=== PATIENT | female | born 1990 | race Caucasian/White ===

== ENCOUNTER 2018-04-14 11:47 | Day surgery (SDC) | payer OTHER ==
[2018-04-13 08:19] VITALS: BMI 16.9
--- NOTE | 2018-04-14 12:50 | HP ---
SHORT STAY HISTORY AND PHYSICAL HISTORY OF PRESENT ILLNESS: This is a 27-year-old female referred to me because of abdominal pain, anorexia and weight loss. The patient has a history of diarrhea. The patient has had these symptoms over the last 5 months. Her weight was around 100 plus pounds, now the weight is down to 90 pounds. The patient has no fever and no chills. The patient comes in for an EGD and colonoscopy because of abdominal pain, nausea, diarrhea, and weight loss. ALLERGIES: NONE. SOCIAL HISTORY: The patient does not smoke, does not drink alcohol, PAST MEDICAL HISTORY: None. PAST SURGICAL HISTORY: None. Menstrually, periods are regular. LMP 03/13/2018. PHYSICAL EXAMINATION: GENERAL: Fragile looking, thin, young female who appears uncomfortable. VITAL SIGNS: Pulse is 70 and blood pressure 100/70. HEENT: Conjunctivae clear. CARDIAC: First and second heart sounds heard. LUNGS: Clear to auscultation. ABDOMEN: Soft. She is tender over the _ epigastric area. There is no rebound or guarding. She is also has mildly tender across the abdomen. EXTREMITIES: Reveal no edema. ADMITTING DIAGNOSES: A 27-year-old with abdominal pain, nausea, diarrhea, and weight loss. PLAN: EGD and colonoscopy. Job ID: [id number] [facility]
[2018-04-14] MEDS ORDERED: PROPOFOL 200 MG/20 ML VIAL ONE (16:44)
[2018-04-14] MEDS ORDERED: ePHEDrine/0.9% NaCl/PF SYRINGE 50 mg/10 ml ONE (16:44)
--- NOTE | 2018-04-16 06:56 | OP ---
DATE OF PROCEDURE: 04/14/2018 OPERATIVE PROCEDURE: Colonoscopy. PREOPERATIVE DIAGNOSES: Abdominal pain and weight loss. POSTOPERATIVE DIAGNOSIS: Normal colonoscopy. DESCRIPTION OF PROCEDURE: The patient was placed in left lateral position and was given sedation by Anesthesia Department. A rectal exam was done and the scope was advanced into the rectum. No lesion was felt on rectal exam. A Pentax video colonoscope was introduced into the rectum and advanced all the way to the cecum. The patient had a tortuous colon. The mucosa appeared normal throughout the colon with normal vascular pattern. The appendiceal orifice, ileocecal valve, cecum; no pathology seen. The colonoscope was taken to the ascending colon, hepatic flexure, transverse colon. No pathology seen. The splenic flexure, descending colon, sigmoid colon, rectum, no pathology seen. Job ID: [id number]
--- NOTE | 2018-04-16 07:43 | OP ---
DATE OF PROCEDURE: 04/14/2018 OPERATIVE PROCEDURE: Esophagogastroduodenoscopy with biopsy. PREOPERATIVE DIAGNOSES: Abdominal pain and weight loss. POSTOPERATIVE DIAGNOSES: 1. Mild mucosal hyperemia of the distal esophagus, nonspecific. 2. Mild antral gastritis and gastric mucosal hyperemia. 3. Normal duodenum. DESCRIPTION OF PROCEDURE: The patient was placed in the left lateral position and was given sedation by Anesthesia Department. A Pentax video gastroscope, under direct vision, was passed down the oropharynx past the GE junction into the stomach, and subsequently into the descending duodenum. There was mild mucosal hyperemia noted in the distal esophagus just above the GE junction, which was actually normal. The fundus, cardia, gastric body, and gastric antrum: No pathology was seen except for mild mucosal hyperemia over the gastric antrum and gastric body. The duodenal bulb and descending duodenum: No pathology seen in the duodenal bulb. The stomach was decompressed and the scope removed. DISCHARGE PLAN: This is a 27-year-old female referred to me because of abdominal pain, weight loss. She underwent both EGD and biopsy, both were negative. DISCHARGE RECOMMENDATIONS: 1. The patient is advised to call me if she develops abdominal pain, hematochezia. 2. In the absence of any other symptoms, she will come back to me in 2 weeks. Job ID: [id number] [facility]
== END 2018-04-14 15:21 | disposition home or self-care (01) ==
LOC: SDC 11:47
PROVIDERS: ATTEND Internal Medicine Gastroenterology
PROC: 0DB58ZX Excision of Esophagus, Via Natural or Artificial Opening Endoscopic, Diagnostic (ICD-10-PCS; principal; 2018-04-14)
PROC: 0DB88ZX Excision of Small Intestine, Via Natural or Artificial Opening Endoscopic, Diagnostic (ICD-10-PCS; principal; 2018-04-14)
PROC: 0DJD8ZZ Inspection of Lower Intestinal Tract, Via Natural or Artificial Opening Endoscopic (ICD-10-PCS; principal; 2018-04-14)
DX: K29.50 Unspecified chronic gastritis without bleeding (principal); R19.7 Diarrhea, unspecified; R63.4 Abnormal weight loss; Z68.1 Body mass index [BMI] 19.9 or less, adult
CPT/HCPCS: 88305; 88312; J2704

== ENCOUNTER 2018-07-22 12:37 | Emergency (ER) | payer OTHER ==
[~2018-07-22 12:37] MED LIST: ISOVUE-370 76%-LOCM 1 ML ONE
[2018-07-22 13:52] LABS: #Eosinphils 0.1 thou/uL (0.0-0.7); #Monocytes 0.2 thou/uL (0.11-0.59); #Neutrophils 4.4 thou/uL (1.40-6.50); %Basophils 0.4 % (0.0-1.0); %Eosinophils 1.2 % (0.0-10.0); %Monocytes 3.9 % (0.0-10.0); %Neutrophils 77.4 % (42.0-75.0); Hemoglobin 14.7 g/dL (12.0-16.0); Mean Corpuscular HGB CONC 33.6 g/dL (32.0-36.0); Mean Corpuscular Hemoglobin 29.5 pg (27.0-31.0); Mean Corpuscular Volume 87.9 fL (78.0-98.0); Mean Platelet Volume 7.6 fL (7.4-10.4); Platelet Count 204 thou/uL (130-400); RBC Distribution Width 11.5 % (11.5-14.5); Red Blood Cell (RBC) Count 4.97 mill/uL (4.20-5.40); White Blood Cell (WBC) Count 5.7 thou/uL (4.8-10.8)
[2018-07-22 14:12] LABS: ALT (SGPT) 16 U/L (8-55); AST (SGOT) 19 U/L (5-34); Albumin 4.9 g/dL (3.5-5.0); Alkaline Phosphatase 59 U/L (40-150); Anion Gap 13 mmol/L (10-20); BUN (Urea Nitrogen) 12 mg/dL (7.0-18.7); Bilirubin, Total 0.6 mg/dL (0.2-1.2); Calc. Creatinine Clearance 0 mL/min (70-130); Calcium 10.3 mg/dL (7.8-10.44); Carbon Dioxide 26 mmol/L (22-29); Chloride 103 mmol/L (98-107); Estimated GFR-MDRD 87; Globulin 2.7 g/dL (2.4-3.5); Glucose 79 mg/dL (70-105); Lipase 17 U/L (8-78); Protein, Total 7.6 g/dL (6.0-8.3); Sodium 138 mmol/L (136-145)
[2018-07-22 14:13] LABS: BHCG - Serum Negative (NEGATIVE); Pregs Control Background? CLEAR/WHITE (CLR/WHITE); Pregs Control Bar Appear? YES (CONTROL BAR)
--- NOTE | 2018-07-22 15:08 | CT ---
CT OF THE ABDOMEN AND PELVIS WITH CONTRAST: Date: 07/22/18 COMPARISON: None. HISTORY: Left lower quadrant abdominal pain when eating. Intermittent diarrhea and constipation. TECHNIQUE: Multiple contiguous axial images were obtained in a CT of the abdomen and pelvis with contrast. Coron al reformats were performed. FINDINGS: There is a large amount of stool retention throughout the colon. The small bowel is normal in caliber without significant distention. No free air, free fluid, or stranding changes are seen in the abdome n or pelvis. The liver, gallbladder, kidneys, adrenal glands, spleen, and pancreas are unremarkable. A small amoun t of free fluid in the pelvis is likely physiologic. The reproductive organs are unremarkable. The pa tient likely recently ovulated from the right ovary. No abdominal or pelvic lymphadenopathy are seen. The osseous structures, visualized inferior thorax, and abdominal wall soft tissues are unremarkable. IMPRESSION: Moderate stool retention in the colon. No other acute intra-abdominal/pelvic abnormality is seen. POS: [facility]
== END 2018-07-22 16:13 | disposition home or self-care (01) ==
LOC: ERS 12:37
DX: R10.32 Left lower quadrant pain (principal); R63.4 Abnormal weight loss
CPT/HCPCS: 36415; 74177; 80053; 83690; 84703; 85025; Q9966

== ENCOUNTER 2018-08-12 15:04 | Outpatient (CLI) | payer OTHER ==
--- NOTE | 2018-08-12 15:40 | ULT ---
ULTRASOUND PELVIS DOPPLER DUPLEX: 08/12/18 HISTORY: 27-year-old female with pelvic pain. TECHNIQUE: Transabdominal transducer used to evaluate intrapelvic contents with winston scale, color flow, and spec tral analysis. Transvaginal ultrasound not performed because patient not sexually active. FINDINGS: Uterus: 7.5 x 3.5 x 2 cm. Endometrial stripe: 0.4 cm (4 mm). Right ovary: 2.7 x 1.7 x 1.3 cm. Left ovary: 2.9 x 1.6 x 2.0 cm. Blood flow demonstrated in both ovaries by doppler. Small follicles visualized, but no ovarian cyst. No free fluid in the cul-de-sac. No moderate sized or large uterine fibroid. Normal appearance of distended urinary bladder. IMPRESSION: Negative. POS: [facility]
== END 2018-08-12 15:05 | disposition home or self-care (01) ==
LOC: BICULT 15:04
PROVIDERS: ATTEND Family Medicine
DX: R10.2 Pelvic and perineal pain (principal)
CPT/HCPCS: 76856; 93976

== ENCOUNTER 2018-08-20 08:43 | Outpatient (CLI) | payer OTHER ==
--- NOTE | 2018-08-20 14:04 | NM ---
NM Gastric Empty Scan W/Meal HISTORY: Abnormal weight loss COMPARISON: None. RADIOPHARMACEUTICAL: 2 mCi technetium 99m sulfur colloid administered orally in scrambled eggs. FINDINGS: There is a 53% emptying of the ingested gastric contents at 1 hour, 78% emptying at 2 hours , 85% emptying at 3 hours and 92% emptying at 4 hours. IMPRESSION: Normal exam
== END 2018-08-20 08:44 | disposition home or self-care (01) ==
LOC: NM 08:43
PROVIDERS: ATTEND Internal Medicine Gastroenterology
DX: R63.4 Abnormal weight loss (principal); K59.00 Constipation, unspecified; R14.0 Abdominal distension (gaseous)
CPT/HCPCS: 78264; A9541

== ENCOUNTER 2022-12-05 09:40 | Outpatient (CLI) | payer OTHER | END 2022-12-05 09:41 | disposition home or self-care (01) | LOC: SCSRAD 09:40 | PROVIDERS: ATTEND Nurse Practitioner Family | DX: S92.531A Displaced fracture of distal phalanx of right lesser toe(s), initial encounter for closed fracture (principal) ==

== ENCOUNTER 2023-03-18 12:48 | Outpatient (CLI) | payer OTHER | END 2023-03-18 12:49 | disposition home or self-care (01) | LOC: ULT 12:48 | PROVIDERS: ATTEND Internal Medicine Clinical Cardiac Electrophysiology | DX: R00.2 Palpitations (principal); R00.0 Tachycardia, unspecified | CPT/HCPCS: 93306 ==